=== PATIENT | male | born 2000 | race African-American/Black ===

== ENCOUNTER 2023-11-27 11:03 | Emergency (ER) | payer OTHER, MEDICAID, SELFPAY ==
[2023-11-27] VITALS (7 sets, daily range): BP systolic 107–133; BP diastolic 67–86; PULSE 56–80; RESP 14–16; O2SAT 100
--- NOTE | 2023-11-27 11:09 | ECG_ITS ---
Test Date: 2023-11-27 11:12:11 Measurements Intervals [place] Rate: 85 P: 80 VA: 155 QRS: 85 QRSD: 92 T: 55 QT: 343 QTc: 408 Interpretive Statements SINUS RHYTHM WITH SINUS ARRHYTHMIA EARLY REPOLARIZATION BASELINE ARTIFACT- I, II, III, AVR, AVL, AVF, V1, V4-V6 BORDERLINE ECG No previous ECG available for comparison Electronically Signed On 11-27-2023 11:47:31 CDT by Nolberto Fischer D.O.
--- NOTE | 2023-11-27 11:20 | ED.GENADULT ---
HPI - General Adult General Chief complaint: Burn/Smoke Inhalation Stated complaint: burn - electrocuted on box during job Time Seen by Provider: 11/27/23 11:08 History of Present Illness HPI narrative: 23-year-old male presents to the emergency room for evaluation of electrical injury sustained at work. 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 Patient denies any LOC altered mental status. Denies any chest pain, palpitations or shortness of breath. Complains of burning sensation to both hands. denies pain or burning sensation anywhere else. Related Data Allergies Allergy/AdvReac Type Severity Reaction Status Date / Time No Known Allergies Allergy Verified 11/27/23 11:21 Review of Systems Review of Systems: ROS unremarkable except for noted in HPI Exam Narrative: GENERAL: Well-appearing, well-nourished, no physical limitations, and in no acute distress. HEAD: Normocephalic, atraumatic. EYES: Conjunctivae normal, PERRLA and EOMI. ENT: External nose normal, Nares clear, no rhinorrhea or epistaxis. Mucous membranes moist. Oropharynx without tonsillar hypertrophy exudate or other lesions. External ears normal, bilateral TMs normal bilaterally NECK: Supple. No meningeal signs. No adenopathy or masses. No carotid bruits or JVD CHEST: Clear to auscultation. No respiratory distress. No wheezes rales or rhonchi. HEART: Regular rate and rhythm. No murmur heard. Normal peripheral pulses. ABDOMEN: Soft, nontender, nondistended, normal active bowel sounds. BACK: No CVA tenderness; No cervical/thoracic/lumbar tenderness, step-offs, bony abnormality; FROM EXTREMITIES: Normal range of motion. No edema. No clubbing or cyanosis. No obvious burn injuries. Calluses noted to right index finger SKIN: Warm, dry, no rash. No noted wounds NEURO: No focal deficits. Alert and oriented x3. MAEW. CN's II-XI intact bilaterally, normal gait PSYCH: Cooperative. Normal mood and affect. Course Vital Signs Vital signs: Vital Signs Pulse Rate 80 11/27/23 11:20 Respiratory Rate 16 11/27/23 11:20 Blood Pressure 133/78 11/27/23 11:20 Pulse Oximetry 100 11/27/23 11:20 Pulse Rate 56 L 11/27/23 12:46 Respiratory Rate 14 07/02/24 12:46 Blood Pressure 107/67 11/27/23 12:46 Pulse Oximetry 100 11/27/23 12:46 Oxygen Delivery Room Air 11/27/23 11:33 Medical Decision Making Vital Signs Vital Signs: Vital Signs Pulse Rate 80 11/27/23 11:20 Respiratory Rate 16 11/27/23 11:20 Blood Pressure 133/78 11/27/23 11:20 Pulse Oximetry 100 11/27/23 11:20 Pulse Rate 56 L 11/27/23 12:46 Respiratory Rate 14 11/27/23 12:46 Blood Pressure 107/67 11/27/23 12:46 Pulse Oximetry 100 11/27/23 12:46 Oxygen Delivery Room Air 11/27/23 11:33 Lab Data 11/27/23 11:31 11/27/23 11:31 Labs: Lab Results 11/27/23 11/27/23 Range/Units 11:31 12:30 WBC 5.3 (4.5-10.0) K/mm3 RBC 4.37 L (4.6-6.20) M/mm3 Hgb 13.9 L (14.0-18.0) g/dL Hct 40.9 L (42.0-52.0) % MCV 93.6 (80-100) fl MCH 31.8 (26-34) pg MCHC 34.0 (32-36) g/dl RDW 11.6 (11.5-14.5) % Plt Count 211 (150-375) k/mm3 MPV 10.6 H (7.4-10.4) fl Immature Gran % (Auto) 0.2 (0-0.5) % Neut % (Auto) 42.3 L (45.5-73.1) % Lymph % (Auto) 37.9 (18.3-44.2) % [place] % (Auto) 9.2 H (2.6-8.5) % Eos % (Auto) 9.8 H (0-4.4) % Baso % (Auto) 0.6 (0.2-1.2) % Lymph # (Auto) 2.02 (0.9-3.2) K/mm3 [place] # (Auto) 0.5 (0.1-0.6) K/mm3 Eos # (Auto) 0.5 H (0-0.3) K/mm3 Baso # (Auto) 0.0 (0.0-0.1) K/mm3 Abs Immat Gran (auto) 0.01 (0.00-0.031) K/mm3 Absolute Neuts (auto) 2.3 (1.3-6.7) K/mm3 Absolute Nucleated RBC 0.000 (0.0-0.012) K/mm3 Nucleated RBC % 0.0 (0.0-0.2) % Sodium 141 (137-145) mmol/L Potassium 4.2 (3.4-5.0) mmol/L Chloride 104 (98-10
[2023-11-27] MEDS: SODIUM CHLORIDE 0.9% IV 1,000 ML 999 ML IV CONT (11:25)
[2023-11-27] MEDS: HYDROmorphone HCL INJ (*CRX) 1 MG/ML SYR 0.5 MG IV PUSH (11:25)
[2023-11-27 11:40] LABS: Basophils Percent Auto 0.6 % (0.2-1.2); Eosinophils Absolute Auto 0.5 K/mm3 (0-0.3); Eosinophils Percent Auto 9.8 % (0-4.4); Hematocrit 40.9 % (42.0-52.0); Hemoglobin 13.9 g/dL (14.0-18.0); Immature Granulocyte Absolute 0.01 K/mm3 (0.00-0.031); Immature Granulocyte Percent A 0.2 % (0-0.5); Lymphocytes Absolute Auto 2.02 K/mm3 (0.9-3.2); Lymphocytes Percent Auto 37.9 % (18.3-44.2); Mean Corpuscular Hemoglobin 31.8 pg (26-34); Mean Corpuscular Volume 93.6 fl (80-100); Mean Platelet Volume 10.6 fl (7.4-10.4); Monocytes Absolute Auto 0.5 K/mm3 (0.1-0.6); Monocytes Percent Auto 9.2 % (2.6-8.5); Neutrophils Absolute Auto 2.3 K/mm3 (1.3-6.7); Neutrophils Percent Auto 42.3 % (45.5-73.1); Platelet Count Result 211 k/mm3 (150-375); Red Blood Count 4.37 M/mm3 (4.6-6.20); Red Cell Distribution Width 11.6 % (11.5-14.5); White Blood Count 5.3 K/mm3 (4.5-10.0)
[2023-11-27 11:51] LABS: Creatine Kinase 292 U/L (55-170); Lactate Dehydrogenase 160 U/L (120-246)
[2023-11-27 11:53] LABS: Alanine Aminotransferase 26 U/L (6-50); Albumin Level 5.1 g/dL (3.5-5.1); Alkaline Phosphatase 72 U/L (38-126); Anion Gap 10 mmol/L (4-12); Aspartate Amino Transferase 40 U/L (17-59); Bilirubin,Total 0.9 mg/dL (0.2-1.3); Blood Urea Nitrogen 12 mg/dL (9-20); Calcium 10.1 mg/dL (8.4-10.2); Carbon Dioxide 27 mmol/L (22-30); Chloride 104 mmol/L (98-107); Estimated CRCL calculation 120 ml/min; Estimated Glomerular Filt Rate > 60; Glucose 83 mg/dL (65-110); Potassium 4.2 mmol/L (3.4-5.0); Sodium 141 mmol/L (137-145)
[2023-11-27 12:44] LABS: Troponin I < 0.012 ng/mL (0.000-0.034)
[2023-11-27 13:15] LABS: Appearance Urine Clear (Clear); Bilirubin Urine Negative (Negative); Blood Urine Negative (Negative); Color Urine Yellow (Yellow); Glucose Urine UA Negative (Negative); Ketones Urine Negative (Negative); Leukocyte Esterase Ur Negative LEU/UL (Negative); Nitrate Urine Negative (Negative); Protein Urine Negative (Negative); Specific Grav Ur 1.016 (1.001-1.035); pH Urine 7.5 (5.0-9.0)
[2023-11-27 13:17] LABS: Add Urine Microscopic? NO
== END 2023-11-27 14:42 | disposition home or self-care (01) ==
PROVIDERS: Emergency Provider Nurse Practitioner Family
DX: T75.4XXA Electrocution, initial encounter (principal); T23.041A Burn of unspecified degree of multiple right fingers (nail), including thumb, initial encounter; T23.032A Burn of unspecified degree of multiple left fingers (nail), not including thumb, initial encounter; T31.0 Burns involving less than 10% of body surface; R94.31 Abnormal electrocardiogram [ECG] [EKG]; W86.8XXA Exposure to other electric current, initial encounter
CPT/HCPCS: 36415; 80053; 81003; 82550; 83615; 84484; 85025; 93005; 96361; 96374; 99284; J1170; J7030